=== PATIENT | female | born 1970 | race Caucasian/White ===

== ENCOUNTER 2017-08-08 19:18 | Emergency (ER) | payer OTHER, BC ==
--- NOTE | 2017-08-08 20:01 | UC ---
Upper Extremity HPI - History of Current Complaint Stated Complaint: HAND INJURY Time Seen by Provider: 08/08/17 19:59 Hx Obtained From: Patient Hx Last Menstrual Period: 03/31/16 Onset/Duration: Sudden Onset - fell while skiing Severity Initially: Moderate Severity Currently: Moderate Location Of Pain: Is Discrete @ - L thumb Character: Throbbing Aggravating Factor(s): Movement Alleviating Factor(s): Rest Associated Signs And Symptoms: Positive: Negative - Allergies/Home Medications Allergies/Adverse Reactions: Allergies Allergy/AdvReac Type Severity Reaction Status Date / Time No Known Allergies Allergy Verified 08/08/17 20:18 Home Medications: Home Medications NK [No Home Medications Reported] 08/08/17 [History Confirmed 08/08/17] PMH/Surg Hx/FS Hx/Imm Hx Previously Healthy: Yes - Surgical History Surgical History: None - Family History Known Family History: Positive: Hypertension - Social History Occupation: Employed Full-time Lives: With Family Alcohol Use: Rare Substance Use Type: None Smoking Status (MU): Never Smoked Tobacco Review of Systems Constitutional: Negative Skin: Negative Respiratory: Negative Cardiovascular: Negative Musculoskeletal: Other: - pain with ROM L base thumb Neurological: Negative Psychological: Negative Is Patient Immunocompromised?: No All Other Systems Reviewed And Are Negative: Yes Physical Exam Triage Information Reviewed: Yes Appearance: Well-Appearing, No Pain Distress Vital Signs Reviewed: Yes Cardiovascular Exam: Normal Musculoskeletal: Positive: Strength Intact, ROM Intact, Other: - pain on movement L thumb Neurological Exam: Normal Psychological Exam: Normal Skin Exam: Normal Upper Extremity Course/Dx - Differential Dx/Diagnosis Differential Diagnosis/HQI/PQRI: Contusion, Fracture (Closed), Strain, Sprain Provider Diagnoses: L thumb strain Discharge - Discharge Plan Condition: Good Disposition: HOME Patient Education Materials: Skier's Thumb (ED) Referrals: No Primary Care Phys,NOPCP [Primary Care Provider] - Prashanth Hargrove MD [Medical Doctor] - 3 Days (for recheck) Additional Instructions: ice and elevate your thumb keep splint on for 3 days ibuprofen 600mg every 6 hours as needed for pain
[2017-08-08 20:18] VITALS: BP 101/71
--- NOTE | 2017-08-08 20:39 | RAD ---
HISTORY: Left thumb pain, injury COMPARISONS: None VIEWS: 3, Frontal, lateral, and oblique views of the first digit of the left hand FINDINGS: BONE DENSITY: Normal. BONES: There is no displaced fracture. JOINTS: There is no arthropathy. ALIGNMENT: There is no dislocation. SOFT TISSUES: Unremarkable. OTHER FINDINGS: None. IMPRESSION: NO ACUTE OSSEOUS INJURY. IF SYMPTOMS PERSIST, RECOMMEND REPEAT IMAGING.
== END 2017-08-08 21:20 | disposition home or self-care (01) ==
LOC: UCEAST 19:18
DX: S63.602A Unspecified sprain of left thumb, initial encounter (principal); V00.321A Fall from snow-skis, initial encounter; Y93.23 Activity, snow (alpine) (downhill) skiing, snowboarding, sledding, tobogganing and snow tubing; Y92.9 Unspecified place or not applicable
CPT/HCPCS: 99213; G0463

== ENCOUNTER 2017-12-15 03:59 | Emergency (ER) | payer OTHER, BC ==
[2017-12-15] MEDS ORDERED: ALPRAZolam TAB* 0.5 MG PO ONE (04:29)
[2017-12-15 05:00] LABS: Hematocrit 40 % (35-47); Hemoglobin 13.6 g/dl (12.0-16.0); Mean Corpuscular HGB Conc 34 g/dl (31-36); Mean Corpuscular Hemoglobin 30 pg (27-31); Mean Corpuscular Volume 87 fL (80-97); Mean Platelet Volume 10.1 um3 (7.4-10.4); Platelet Count 217 10^3/ul (150-450); Red Blood Count 4.59 10^6/ul (4.00-5.40); Red Cell Distribution Width 14 % (10.5-15); White Blood Count 4.7 10^3/ul (3.5-10.8)
[2017-12-15 05:11] LABS: ABS Basophils 0 10^3/ul (0-0.2); ABS Eosinophils 0.1 10^3/ul (0-0.6); ABS Lymphocytes 1.4 10^3/ul (1.0-4.8); ABS Monocytes 0.4 10^3/ul (0-0.8); ABS Neutrophils 2.8 10^3/ul (1.5-7.7); ABS Nucleated RBC 0 10^3/ul
[2017-12-15 05:13] LABS: EGFR Non-African American 77.2 (>60)
[2017-12-15 05:48] LABS: Eosinophil % 1.2 % (0-6); Lymphocyte % 29.5 % (25-47); Nucleated Red Blood Cells % 0
--- NOTE | 2017-12-15 05:58 | ED ---
Tomeka Alegria Emily, scribed for Matthew Xie MD on 12/15/17 at 0444 . Complex/Multi-Sys Presentation - HPI Summary HPI Summary: This patient is a 47 year old F BIBA to [facility] with a chief complaint of chest pressure that began upon waking [employer]CH[employer]. PT states that she woke up from a nightmare when the symptoms started. The patient rates the pain 0/10 in severity. Symptoms aggravated by nothing. Symptoms alleviated by nothing. Patient reports whole body shaking, cough, and palpitations. - History Of Current Complaint Chief Complaint: EDDysrhythmPalp Time Seen by Provider: 12/15/17 04:11 Hx Obtained From: Patient Onset/Duration: Sudden Onset, Lasting Hours, Still Present Timing: Constant Severity Currently: Mild Severity Initially: Mild Aggravating Factor(s): Nothing Alleviating Factor(s): Nothing Associated Signs And Symptoms: Positive: Other - Patient reports whole body shaking, cough, and palpitations. - Allergies/Home Medications Allergies/Adverse Reactions: Allergies Allergy/AdvReac Type Severity Reaction Status Date / Time No Known Allergies Allergy Verified 08/08/17 20:18 PMH/Surg Hx/FS Hx/Imm Hx Previously Healthy: No Endocrine/Hematology History: Denies: Hx Diabetes, Hx Thyroid Disease Cardiovascular History: Denies: Hx Hypertension Respiratory History: Denies: Hx Asthma, Hx Chronic Obstructive Pulmonary Disease (COPD) GI History: Denies: Hx Ulcer History: Denies: Hx Dialysis, Hx Renal Disease Neurological History: Reports: Hx Migraine Infectious Disease History: No Infectious Disease History: Reports: Traveled Outside the [place] in Last 30 Days - [facility] Denies: Hx Hepatitis, Hx Human Immunodeficiency Virus (HIV) - Family History Known Family History: Positive: Hypertension - Social History Occupation: Student Lives: With Family Alcohol Use: Rare Hx Substance Use: No Substance Use Type: Reports: None Hx Tobacco Use: No Smoking Status (MU): Never Smoked Tobacco Review of Systems Positive: Palpitations, Other - Positive chest pressure Positive: Cough Positive: Other - Positive whole body shaking All Other Systems Reviewed And Are Negative: Yes Physical Exam - Summary Physical Exam Summary: VITAL SIGNS: Reviewed. GENERAL: Patient is a well-developed and nourished female who is lying comfortable in the stretcher. Patient is not in any acute respiratory distress. HEAD AND FACE: No signs of trauma. No ecchymosis, hematomas or skull depressions. No sinus tenderness. EYES: PERRLA, EOMI x 2, No injected conjunctiva, no nystagmus. EARS: Hearing grossly intact. Ear canals and tympanic membranes are within normal limits. MOUTH: Oropharynx within normal limits. NECK: Supple, trachea is midline, no adenopathy, no JVD, no carotid bruit, no c- spine tenderness, neck with full ROM. CHEST: Symmetric, no tenderness at palpation LUNGS: Clear to auscultation bilaterally. No wheezing or crackles. CVS: Regular rate and rhythm, S1 and S2 present, no murmurs or gallops appreciated. ABDOMEN: Soft, non-tender. No signs of distention. No rebound no guarding, and no masses palpated. Bowel sounds are normal. EXTREMITIES: FROM in all major joints, no edema, no cyanosis or clubbing. NEURO: Alert and oriented x 3. No acute neurological deficits. Speech is normal and follows commands. SKIN: Dry and warm Triage Information Reviewed: Yes Vital Signs On Initial Exam: Initial Vitals Temp Pulse Resp BP Pulse Ox 98.8 F 67 15 136/82 99 12/15/17 04:07 12/15/17 04:07 12/15/17 04:07 12/15/17 04:07 12/15/17 04:07 Vital Signs Reviewed: Yes Diagnostics - Vital Signs Vital Signs Temp Pulse Resp BP Pulse Ox 12/15/17 04:38 14 12/15/17 04:07 98.8 F 67 15 136/82 99 - Laboratory Result Diagrams: 12/15/17 04:49 12/15/17 04:49 Lab Statement: Any lab studies that have been ordered have been reviewed, and results considered in the medical decision making process. - EKG 0435 Cardiac Rate: NL EKG Rhythm: Sinus Rhythm - 59 BPM EKG Interpretation: Nml axis. Nml intervals. No ischemic changes Re-Evaluation - Re-Evaluation First Eval Re-Evaluation Time: 05:43 Change: Improved Comment: Pt reports that symptoms have improved. Discussed results and plan of care with pt Complex Multi-Symp Course/Dx Course Of Treatment: This patient is a 47 year old F BIBA to [facility] with a chief complaint of chest pressure that began upon waking [employer]CH[employer]. Blood work and UA obtained. In the ED course the patient was given Xanax. Patient will be discharged with follow up from PCP. The patient is agreeable with this plan. - Diagnoses Provider Diagnoses: Anxiety Discharge - Sign-Out/Discharge Documenting (check all that apply): Discharge/Admit/Transfer - Discharge home - Discharge Plan Condition: Stable Disposition: HOME Patient Education Materials: Anxiety (ED) Referrals: Eitan GARCIA,Baylee Bird [Primary Care Provider] - 1 Day Additional Instructions: RETURN TO EMERGENCY DEPARTMENT FOR NEW OR WORSENING SYMPTOMS The documentation as recorded by the Tomeka chau Emily accurately reflects the service I personally performed and the decisions made by , Matthew Xie MD.
[2017-12-15 06:00] VITALS: BP 114/63
== END 2017-12-15 05:59 | disposition home or self-care (01) ==
LOC: ED 03:59
DX: F41.9 Anxiety disorder, unspecified (principal)
CPT/HCPCS: 36415; 80053; 83735; 84484; 84702; 85025; 93005; 99282; A9270-GY

== ENCOUNTER 2019-08-26 07:35 | Emergency (ER) | payer OTHER, BC ==
[2019-08-26 07:47] VITALS: BP 136/83
--- NOTE | 2019-08-26 09:04 | UC ---
Headache HPI - HPI Summary HPI Summary: ONSET LAST NIGHT OF BILATERAL TEMPORAL SQUEEZING HEADACHE. STATES SHE HAS HAD MIGRAINES IN THE PAST BUT THIS FEELS DIFFERENT. SHE DENIES ANY VISUAL DISTURBANCES. NO JAW PAIN. NO NAUSEA/VOMITING. NO DIZZINESS. NO FEVER. SYMPTOMS ARE WORSE WITH CHANGE IN POSITION. NO HISTORY OF TRAUMA. SHE HAS NOT TRIED ANY ANALGESICS. - History Of Current Complaint Chief Complaint: UCGeneralIllness Stated Complaint: HEADACHE Time Seen by Provider: 08/26/19 08:35 Hx Obtained From: Patient Hx Last Menstrual Period: 08/20/19 Onset/Duration: Gradual Onset, Lasting Hours, Still Present Initially Headache Was: Moderate Currently Pain Is: Moderate Pain Intensity: 6 Pain Scale Used: 0-10 Numeric Character: Pressure Location of Headache: Temporal Aggravating Factor(s): Position Change Allevating Factor(s): Rest Associated Signs And Symptoms: Negative: Dizziness, Seizure, Nausea, Sinus Pressure, Fever, Neck Pain, Decreased LOC, Visual Changes - Allergies/Home Medications Allergies/Adverse Reactions: Allergies Allergy/AdvReac Type Severity Reaction Status Date / Time No Known Allergies Allergy Verified 08/26/19 07:47 Home Medications: Home Medications NK [No Home Medications Reported] 08/08/17 [History Confirmed 08/26/19] PMH/Surg Hx/FS Hx/Imm Hx Previously Healthy: Yes - Surgical History Surgical History: None - Family History Known Family History: Positive: Hypertension - Social History Alcohol Use: Rare Substance Use Type: None Smoking Status (MU): Never Smoked Tobacco Review of Systems All Other Systems Reviewed And Are Negative: Yes Constitutional: Positive: Negative ENT: Positive: Negative Respiratory: Positive: Negative Cardiovascular: Positive: Negative Gastrointestinal: Positive: Negative Neurological/Mental Status: Positive: Headache Physical Exam Triage Information Reviewed: Yes Appearance: Well-Appearing, No Pain Distress, Well-Nourished Vital Signs: Initial Vital Signs Temp 98 F 08/26/19 07:44 Pulse 79 08/26/19 07:44 Resp 17 08/26/19 07:44 BP 136/83 08/26/19 07:44 Pulse Ox 98 08/26/19 07:44 Vital Signs Reviewed: Yes Eyes: Positive: Conjunctiva Clear, Other: - PERRL, EOMI ENT: Positive: Hearing grossly normal Neck: Positive: Supple Respiratory: Positive: No respiratory distress, No accessory muscle use Cardiovascular: Positive: Pulses Normal Abdomen Description: Positive: Soft Musculoskeletal: Positive: No Edema Neurological: Positive: Alert, Other: - CN II-XII GROSSLY INTACT BILATERALLY. RAPID ALTERNATING MOVEMENTS INTACT. NEG PRONATOR DRIFT. NEG ROMBERG. 5/5 STRENGTH. HEEL TO CARDENAS INTACT BILATERALLY. TANDEM GAIT INTACT. FINGER TO NOSE INTACT. Psychological: Positive: Age Appropriate Behavior Skin: Negative: Rashes Headache Course/Dx - Course Course Of Treatment: PT PRESENTS WITH A SQUEEZING BILATERAL TEMPORAL HEADACHE. PRESENTATION NOT CONSISTENT WITH TEMPORAL ARTERITIS. CBC AND ESR OBTAINED TO FURTHER EVALUATE. DISCUSSED WITH PATIENT CT SCAN WHICH SHE DECLINED. SHE ALSO DECLINED IV FLUIDS AND ANY ANALGESICS TODAY. ENCOURAGED HER TO STAY WELL RESTED AND HYDRATED. OTC MEDS FOR DISCOMFORT. SYMPTOMS SHOULD HOPEFULLY RESOLVE WITH CONSERVATIVE MANAGEMENT. IF HER SYMPTOMS DO NOT IMPROVE SHE IS TO FOLLOW-UP WITH NEUROLOGY. TO THE ER WITHOUT FAIL IF SYMPTOMS WORSEN. - Differential Dx/Diagnosis Provider Diagnosis: Headache Discharge ED - Sign-Out/Discharge Documenting (check all that apply): Patient Departure All imaging exams completed and their final reports reviewed: No Studies - Discharge Plan Condition: Stable Disposition: HOME Patient Education Materials: General Headache (ED) Referrals: Jacqueline Dean MD [Medical Doctor] - Eitan GARCIA,Baylee Bird [Primary Care Provider] - If Needed Additional Instructions: BLOOD COUNT AND SED RATE (GENERAL MARKER OF INFLAMMATION) OBTAINED TODAY TO FURTHER EVALUATE YOUR HEADACHE. STAY WELL RESTED AND HYDRATED. TAKE OTC MEDICATIONS NEEDED FOR DISCOMFORT. IF YOUR SYMPTOMS ARE PERSISTENT FOLLOW- UP WITH NEUROLOGY. YOU MAY BENEFIT FROM NEUROIMAGING. GO TO THE ER WITHOUT FAIL IF YOU DEVELOP UNEQUAL PUPILS, VISUAL DISTURBANCE, GAIT INSTABILITY, SPEECH DIFFICULTY, NAUSEA/VOMITING, WORSENING HEADACHE, DIZZINESS, CONFUSION, WEAKNESS OR ANY OTHER CONCERNING SYMPTOMS. - Billing Disposition and Condition Condition: STABLE Disposition: Home
[2019-08-26 11:17] LABS: ABS Lymphocytes 0.9 10^3/ul (1.0-4.8); ABS Monocytes 0.3 10^3/ul (0-0.8); ABS Neutrophils 4.3 10^3/ul (1.5-7.7); Eosinophil % 0.1 %; Hematocrit 42 % (35-47); Hemoglobin 14.3 g/dL (12.0-16.0); Mean Corpuscular HGB Conc 34 g/dL (31-36); Mean Corpuscular Hemoglobin 31 pg (27-31); Mean Corpuscular Volume 92 fL (80-97); Mean Platelet Volume 9.9 fL (7.4-10.4); Platelet Count 270 10^3/uL (150-450); Red Blood Count 4.57 10^6 /uL (3.70-4.87); Red Cell Distribution Width 14 % (10-15); White Blood Count 5.6 10^3/uL (3.5-10.8)
[2019-08-26 12:42] LABS: Erythrocyte Sed Rate 5 mm/Hr (0-19)
--- NOTE | 2019-08-27 13:05 | UC ---
- Progress Note Progress Note: Progress Note: CBC: .9 lymps; otherwise, WNL. Sed rate=5=WNL. No change in treatment. Mati Peguero MD Course/Dx - Diagnoses Provider Diagnoses: Headache Discharge ED - Sign-Out/Discharge Documenting (check all that apply): Post-Discharge Follow Up All imaging exams completed and their final reports reviewed: No Studies - Discharge Plan Condition: Stable Disposition: HOME Patient Education Materials: General Headache (ED) Referrals: Jacqueline Dean MD [Medical Doctor] - Baylee Laird MD [Primary Care Provider] - If Needed Additional Instructions: BLOOD COUNT AND SED RATE (GENERAL MARKER OF INFLAMMATION) OBTAINED TODAY TO FURTHER EVALUATE YOUR HEADACHE. STAY WELL RESTED AND HYDRATED. TAKE OTC MEDICATIONS NEEDED FOR DISCOMFORT. IF YOUR SYMPTOMS ARE PERSISTENT FOLLOW- UP WITH NEUROLOGY. YOU MAY BENEFIT FROM NEUROIMAGING. GO TO THE ER WITHOUT FAIL IF YOU DEVELOP UNEQUAL PUPILS, VISUAL DISTURBANCE, GAIT INSTABILITY, SPEECH DIFFICULTY, NAUSEA/VOMITING, WORSENING HEADACHE, DIZZINESS, CONFUSION, WEAKNESS OR ANY OTHER CONCERNING SYMPTOMS. - Billing Disposition and Condition Condition: STABLE Disposition: Home
== END 2019-08-26 09:08 | disposition home or self-care (01) ==
LOC: UCEAST 07:35
DX: R51 Headache (principal)
CPT/HCPCS: 36415; 85025; 85652; 99211; G0463